=== PATIENT | female | born 1960 | race Caucasian/White ===

== ENCOUNTER → 2017-04-05 | Outpatient (REF) | payer OTHER ==
[2017-04-05 12:37] LABS: BASO # 0.2 K/mm3 (0.0-0.2); BASO % 2.1 % (0.0-1.0); EOS # 0.1 K/mm3 (0.0-0.50); EOS % 1.9 % (0.0-3.0); LARGE UNSTAINED CELL # 0.2 K/mm3 (0.0-0.4); LARGE UNSTAINED CELL % 2.2 % (0.0-4.0); LYMPH # 2.2 K/mm3 (1.5-4.5); LYMPH % 27.4 % (24.0-44.0); MEAN CORPUSCULAR HEMOGLOBIN 33.6 pg (27.0-33.0); MEAN CORPUSCULAR HGB CONC 33.7 g/dl (32.0-36.5); MEAN CORPUSCULAR VOLUME 99.8 fl (80.0-96.0); MONO # 0.6 K/mm3 (0.0-0.8); MONO % 7.9 % (0.0-5.0); NEUTROPHILS # 4.4 K/mm3 (1.8-7.7); NEUTROPHILS % 58.4 % (36.0-66.0); PLATELET COUNT, AUTOMATED 212 k/mm3 (150-450); RED CELL DISTRIBUTION WIDTH 13.4 % (11.5-14.5); WHITE BLOOD COUNT 7.5 K/mm3 (4.0-10.0)
[2017-04-05 13:05] LABS: ERYTHROCYTE SEDIMENTATION RATE 10 mm/hr (0-30)
[2017-04-05 13:21] LABS: URIC ACID 2.8 MG/DL (2.6-6.0)
[2017-04-07 18:14] LABS: Lyme Disease IgG/IgM Antibodie <0.91 ISR (0.00-0.90); Lyme Disease IgM Ab Quantitati <0.80 index (0.00-0.79)
== END ==
LOC: M LABDRAW1 11:43
PROVIDERS: ATTEND Physician Assistant Surgical
DX: M19.011 Primary osteoarthritis, right shoulder (principal)

== ENCOUNTER → 2017-04-23 | Outpatient (RCR) | payer OTHER | LOC: M PT 04-18 16:47 | PROVIDERS: ATTEND Physician Assistant Surgical | DX: Z51.89 Encounter for other specified aftercare (principal); M75.01 Adhesive capsulitis of right shoulder; M75.02 Adhesive capsulitis of left shoulder ==

== ENCOUNTER 2017-05-23 16:45 | Outpatient (RCR) | payer OTHER | END 2017-05-24 | LOC: M PT 16:45 | PROVIDERS: ATTEND Physician Assistant Surgical | DX: Z51.89 Encounter for other specified aftercare (principal); M75.01 Adhesive capsulitis of right shoulder; M75.02 Adhesive capsulitis of left shoulder ==

== ENCOUNTER 2017-06-19 15:15 | Outpatient (RCR) | payer OTHER | END 2017-06-23 | LOC: M PT 15:15 | PROVIDERS: ATTEND Physician Assistant Surgical | DX: Z51.89 Encounter for other specified aftercare (principal); M19.011 Primary osteoarthritis, right shoulder; M19.012 Primary osteoarthritis, left shoulder; M75.02 Adhesive capsulitis of left shoulder ==

== ENCOUNTER 2017-07-03 15:21 | Outpatient (RCR) | payer OTHER | END 2017-07-24 | LOC: M PT 15:21 | PROVIDERS: ATTEND Physician Assistant Surgical | DX: Z51.89 Encounter for other specified aftercare (principal); M19.011 Primary osteoarthritis, right shoulder; M19.012 Primary osteoarthritis, left shoulder; M75.02 Adhesive capsulitis of left shoulder; M75.01 Adhesive capsulitis of right shoulder; M75.21 Bicipital tendinitis, right shoulder; M75.22 Bicipital tendinitis, left shoulder; M75.41 Impingement syndrome of right shoulder; M75.42 Impingement syndrome of left shoulder; M75.112 Incomplete rotator cuff tear or rupture of left shoulder, not specified as traumatic ==

== ENCOUNTER → 2018-11-29 | Outpatient (CLI) | payer OTHER ==
[~2018-11-29] MED LIST: BENZ200C70 PO; FLUTISP; LOSA100T50 PO; METR0.7533 TOP; NICO14DI3 TOP; NICO21DI6 TOP; PROHANCE 279.3MG/ML 15ML VIAL (A9576) As Ordered ONE; QVAR80AE8 IN; SYNT25TA PO; ZYRTTAB8 PO
--- NOTE | 2018-11-29 15:17 | REP ---
MRI brain without and with IV contrast: History: Status post craniotomy with occipital metastasis. Surgery June of 2018 in [facility]. Restage lung cancer. No comparison imaging. The gadolinium enhancement dose is 15 mL of intravenous ProHance. MRI findings: There is occipital craniotomy defect in the posterior midline. No cerebellar mass lesion is visible. There is a small focus of encephalomalacia in the region of the vermis of the cerebellum. There is a tiny karina hole like defect in the right frontal bone at the frontal vertex. This may have been for intracranial pressure monitoring. It does not appear to have been a ventriculostomy site. There is no evidence of subdural or epidural fluid collection. No mass or infarct is seen. Diffusion weighted scans show no evidence to suggest acute ischemia. Postcontrast images show a small quantity of postoperative granulation in the suboccipital region at the craniotomy site. No other abnormal gadolinium enhancement is appreciated. Incidental note is made of bilateral mastoid sinus fluid consistent with some degree of inflammatory mastoid sinus disease. Impression: Status post midline occipital craniotomy. No intracranial mass lesion or abnormal intracranial contrast enhancement is seen. There is some midline encephalomalacia in the vermis of the cerebellum. Consistent with postoperative change. Electronically Signed by Corona Irene MD 11/29/2018 06:49 P
== END ==
LOC: M RAD 12:51
PROVIDERS: ATTEND Internal Medicine Hematology & Oncology
DX: G93.89 Other specified disorders of brain (principal); Z98.890 Other specified postprocedural states; C34.90 Malignant neoplasm of unspecified part of unspecified bronchus or lung; C79.31 Secondary malignant neoplasm of brain
CPT/HCPCS: 70553; A9576

== ENCOUNTER → 2018-12-10 | Outpatient (CLI) | payer OTHER ==
[~2018-12-10] MED LIST changes: -PROHANCE 279.3MG/ML 15ML VIAL (A9576) As Ordered ONE
--- NOTE | 2018-12-18 09:43 | REP ---
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 Brain metastasis. Status post resection of a cerebellar metastasis and whole brain radiation therapy. Right hilar mass. Please obtain prior PET/CT, brain MRI, and chest imaging. Comparisons: Comparison PET/CT study is retrieved from an outside facility dated August 21, 2018. Reporting was delayed pending retrieval of this study. Comparison brain MRI study November 29, 2018. TECHNIQUE: 58 minutes following the intravenous injection of a 9.58 mCi dose of F-18 FDG, three-dimensional PET scintigraphy is acquired from the skull base to the proximal thighs. Triplanar noncontrast CT scanning is acquired through the same anatomic range for attenuation correction, and image registration with scan parameters optimized to minimize radiation exposure to the patient. PET scintigraphy and CT datasets were fused and displayed on a workstation with multiplanar and projection display capability. PET/CT Findings: The previously noted right superior hilar hypermetabolic focus is again seen. It remains hypermetabolic. Maximum standard uptake value is 12.75. Previously this was reported at maximum standard uptake value of 18. This focus remains difficult to measure dimensions with lack of IV contrast but is approximately 2.5 cm. There is no mediastinal hypermetabolic focus visible today. No other abnormal hypermetabolic uptake is seen in the chest. There is a noncalcified nodule in the right upper lobe posterolaterally. This is not hypermetabolic. Maximum standard uptake value is 1.07. This nodular density is somewhat smaller than on the August 21, 2018 CT images. The infiltrate seen at that time in the right upper lobe anteriorly has resolved. In the abdomen and pelvis, there is normal hepatic, splenic, gastrointestinal, and genitourinary F-18 FDG distribution. No hypermetabolic abnormality is seen in the abdomen or pelvis. The patient is status post occipital craniotomy. No abnormal hypermetabolic uptake is seen within the visualized brain. Impression: Hypermetabolic uptake persists in the right superior hilus. Decreased SUV value. There is a nonhypermetabolic nodule in the right upper lobe of the lung which is a little smaller. Electronically Signed by Corona Irene MD 12/18/2018 03:51 P
== END ==
LOC: M PLARAD 10:23
PROVIDERS: ATTEND Internal Medicine Hematology & Oncology
DX: C34.11 Malignant neoplasm of upper lobe, right bronchus or lung (principal)
CPT/HCPCS: 78815; A9552

== ENCOUNTER → 2019-02-03 | Outpatient (CLI) | payer OTHER ==
[~2019-02-03] MED LIST changes: +ALBU83IN INH; +CEFT1INJ4 IV; +MAGICMW SSP; +METR0.753 TOP; +MSIR30TA PO; -QVAR80AE8 IN; +QVAR80AE8 INH; +SENN-52 PO
--- NOTE | 2019-02-03 07:32 | PFTRPT ---
Height: 63.00 Inches Weight: 163.00 Lbs BSA: 1.77 Diagnosis: Lung CA DATE OF PROCEDURE: 02/03/2019 ORDERED BY: Dr. Reis Spirometry: Pre and post bronchodilator study of excellent technical quality. Forced vital capacity reduced. FEV1 in proportion. Obstructive index is, therefore, normal. Flow Volume Loop: Expiratory limb of the flow volume loop does suggest flow rate limitation. There is no bronchodilator response identified. Lung Volumes: Total lung capacity is normal. Residual volume consistent with air trapping. Diffusing Capacity: Diffusing capacity is reduced and does not completely correct for alveolar volume. Hemoglobin: No hemoglobin available for correction. Airway Mechanics: Airway resistance and conductance are normal. IMPRESSION: Suspect some level of obstruction with air trapping. Mild diffusing capacity impairment. Please correlate clinically. MTDD
== END ==
LOC: M CARPUL 06:50
PROVIDERS: ATTEND Radiology Radiation Oncology
DX: C79.31 Secondary malignant neoplasm of brain (principal)

== ENCOUNTER 2019-02-07 04:00 | Inpatient (IN) | payer OTHER ==
[~2019-02-07] VITALS: Ht 160 cm; Wt 74.6 kg
[~2019-02-07 04:00] MED LIST changes: -ALBU83IN INH; -CEFT1INJ4 IV; -METR0.753 TOP; -MSIR30TA PO; -SENN-52 PO
[2019-02-07 08:05] VITALS: BP 122/69
[2019-02-07] MEDS ORDERED: ACETAMINOPH W/CODEINE #3 TAB UD PO PRN ×2 (09:00)
[2019-02-07] MEDS: FLUTICASONE PROP 0.05% NASAL SPRAY 16 GM (FLONASE) SCH ×2 (09:00→20:51)
[2019-02-07] MEDS ORDERED: MORPHINE 4 MG/ML 1ML VIAL/SYRINGE (J2270) IV PRN (09:00)
[2019-02-07 09:22] LABS: HEMATOCRIT 37.3 % (36.0-47.0); HEMOGLOBIN 11.9 g/dl (12.0-15.5); MEAN CORPUSCULAR HEMOGLOBIN 30.7 pg (27.0-33.0); MEAN CORPUSCULAR HGB CONC 31.9 g/dl (32.0-36.5); MEAN CORPUSCULAR VOLUME 96.4 fl (80.0-96.0); PLATELET COUNT, AUTOMATED 410 10^3/uL (150-450); RED BLOOD COUNT 3.87 10^6/uL (4.00-5.40); WHITE BLOOD COUNT 10.5 10^3/uL (4.0-10.0)
[2019-02-07] MEDS ORDERED: ALBU83IN INH (09:39)
[2019-02-07] MEDS ORDERED: BENZ200C70 PO (09:39)
[2019-02-07] MEDS ORDERED: CEFT1INJ4 IV (09:39)
[2019-02-07 09:40] LABS: ALT/SGPT 18 U/L (12-78); BILIRUBIN,TOTAL 0.2 MG/DL (0.2-1.0); BLOOD UREA NITROGEN 5 MG/DL (7-18); CALCIUM LEVEL 8.6 MG/DL (8.5-10.1); CARBON DIOXIDE LEVEL 28 MEQ/L (21-32); CHLORIDE LEVEL 103 MEQ/L (98-107); CREATININE FOR GFR 0.66 MG/DL (0.55-1.30); GLOMERULAR FILTRATION RATE > 60.0 (>51); GLUCOSE, FASTING 109 MG/DL (70-100); POTASSIUM SERUM 4.6 MEQ/L (3.5-5.1); SODIUM LEVEL 138 MEQ/L (136-145); TOTAL PROTEIN 6.9 GM/DL (6.4-8.2)
[2019-02-07] MEDS ORDERED: cefTRIAXone SOD 1 GM in D5W MINI-BAG PLUS 50 ML IV SCH (10:00)
[2019-02-07] MEDS: ENOXAPARIN 40 MG/0.4 ML SYRINGE (J1650) SC SCH (10:14)
[2019-02-07] MEDS: MORPHINE 4 MG/ML 1ML VIAL/SYRINGE (J2270) IV PRN ×3 (10:16→22:24)
[2019-02-07] MEDS ORDERED: BENZONATATE 100 MG CAP PO PRN (11:00)
[2019-02-07] MEDS ORDERED: metroNIDAZOLE 70 GM VAGINAL GEL TOP PRN (11:00)
[2019-02-07] MEDS ORDERED: ALBUTEROL SULFATE 2.5 MG/0.5 ML INH NEB SOLN INH PRN (11:00)
--- NOTE | 2019-02-07 11:08 | HPEPDOC ---
[facility] [place] History & Physical Date of Admission Attending Physician: Melissa History and Physical DATE OF ADMISSION 02/07/2019 PCP Adam CHIEF COMPLAINT: Right scapular pain HISTORY OF PRESENT ILLNESS: Patient is a 54-year-old male female who presents with right scapular pain which is onset within the last 3-4 weeks with progressive worsening she felt it was related to the way she was utilizing her rolling walker and have this adjusted some mild improvement at Dr. Aponte's office of oncology. Since then however it is progressively worsened once again it is in the [facility] area where she has right-sided small cell carcinoma of the lung and where she has been undergoing radiation therapy. It is not improved with Tylenol it is not associated with any specific position but worse with any movement. She denies fevers chills nausea vomiting. She denies any associated cough recent travel or sick contacts. The patient initially presented to [facility] but they did not have a bed and as such she was transferred to our facility as a direct admission PAST MEDICAL HISTORY: 1. 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 2. Gastroesophageal reflux disease. 3. COPD 4. Hypothyroidism. HOME MEDICATIONS: Please see below. ALLERGIES: Please see below PAST SURGICAL HISTORY: 1. Brain resection for metastatic lung cancer. 2. . 3. "hand and arm surgery". SOCIAL HISTORY: Lives with: Alone, Employment: Retired cafe or restaurant manager, Tobacco use: Active smoker. ETOH: Infrequent alcohol use, Illicit drug use: Denies, Tattoos done unprofessionally: Denies. IV drug use: Denies CODE STATUS: DNR/DNI paperwork is with her daughter Marta Flower who is her healthcare proxy and lives in [place] FAMILY HISTORY:Reviewed and noncontributory REVIEW OF SYSTEMS: CONSTITUTIONAL: Denies weight loss, night sweats, fatigue malaise HEENT: Denies visual changes, headache, eye pain, running nose, nosebleeds, rining in the ear, sore throat. CARDIOVASCULAR: Denies chest pain, shortness of breath, PND, orthopnea, edema. RESPIRATORY: Denies cough, sputum, wheeze, hemoptysis. GASTROINTESTINAL: Denies abdominal pain, nausea, vomiting, diarrhea. GENITOURINARY: Denies incontinence, frequency, dysuria. SKIN: Denies pruritus, oswaldo, dryness, open wounds. MUSCULOSKELETAL: Denies muscle ache,s weakness, worsening arthritis, other than HPI. NEUROLOGICAL: Denies seizures, paresthesias, paralysis, gait instability. PSYCHIATRIC: Patient denies difficulty with concentration, anxiety, anhedonia, depression, energy. ENDOCRINE: Patient denies cold or heat intolerance, changes in appetite, hair loss. HEMATOLOGIC/LYMPHATIC: Denies purpura, petechia, easy bleeding. PHYSICAL EXAMINATION: VITAL SIGNS: Temperature 97 7, pulse 82, respiratory rate 18, blood pressure 122/69, pulse oximetry 98 % on room air. GENERAL: Pleasant elderly woman sitting up in bed awake alert oriented speaking in complete sentences no acute distress HEENT: Moist mucous membranes no elevation and CVP, well-healed surgical scar to the right cranium CARDIOVASCULAR: S1 S2 regular no additional heart sounds appreciated. RESPIRATORY: Clear to auscultation bilaterally. No tenderness to palpation over the right scapula ABDOMINAL: Bowel sounds present abdomen soft and nontender, obese EXTREMITIES: No clubbing cyanosis or edema NEUROLOGICAL: Spontaneously moves all 4 extremities cranial 2 through 12 grossly intact no gross focal deficits appreciated PSYCHOLOGICAL: Appropriate LABORATORY DATA: See below. MICROBIOLOGY: Please see below. IMAGING: Report from [facility] regarding CTA suggestive of right lung mass possible infiltrate associated with it ASSESSMENT & PLAN: 58-year-old female with small cell lung carcinoma presenting with right-sided scapular pain. PROBLEMS: 1. Right-sided scapular pain: Highly suspicious for infiltrative metastatic disease and we'll check a chest x-ray, she is concern for musculoskeletal pain related to using her walker. I've contacted physical therapy and occupational therapy to have her evaluated. I'll provide her with codeine for pain control as she has allergies to hydrocodone and oxycodone. These medications causing her to get hives and vomiting. Also provided with IV morphine for breakthrough as needed I did discuss at length palliative care consultation which she is agreeab le to have entered this order. My suspicion for pneumonia is quite low she was started on ceftriaxone at [facility] I'll continue doxycycline and ceftriaxone and follow-up her cultures and pro-calcitonin level with a low threshold to discontinue antibiotics 2.Stage IV metastatic small cell carcinoma: She'll require further outpatient oncology follow-up she is a DNR/DNI which I feel is appropriate. Her prognosis is certainly poor given this diagnosis seen with vest therapies. Her disease has remained stable as far she knows. My goal will be to optimize her pain relief and have follow-up oncology outpatient 3.Hypothyroidism: Continue with Synthroid 4. Hypertension: Continue with losartan DVT PROPHYLAXIS: Lovenox DISPOSITION: And admitted to the medical surgical floor PROGNOSIS: Long-term is quite poor Vital Signs Vital Signs Date Time Temp Pulse Resp B/P (MAP) Pulse Ox O2 Delivery O2 Flow Rate FiO2 02/07/19 10:26 18 02/07/19 08:05 97.7 82 122/69 (86) 98 Laboratory Data Labs 24H Laboratory Tests 2 02/07/19 09:05: Nucleated Red Blood Cells % (auto) 0.0, Anion Gap 7L, Glomerular Filtration Rate > 60.0, Lactic Acid Level 1.6, Blood Urea Nitrogen 5L, Creatinine 0.66, Sodium Level 138, Potassium Level 4.6, Chloride Level 103, Carbon Dioxide Level 28, Calcium Level 8.6, Aspartate Amino Transf (AST/SGOT) 14, Alanine Aminotransferase (ALT/SGPT) 18, Alkaline Phosphatase 127H, Total Bilirubin 0.2, Total Protein 6.9, Albumin 3.0L, Albumin/Globulin Ratio 0.77L CBC/BMP Laboratory Tests 02/07/19 09:05 Red Blood Count 3.87 L, Mean Corpuscular Volume 96.4 H, Mean Corpuscular Hemoglobin 30.7, Mean Corpuscular Hemoglobin Concent 31.9 L, Red Cell Dis tribution Width 15.6 H, Calcium Level 8.6, Aspartate Amino Transf (AST/SGOT) 14, Alanine Aminotransferase (ALT/SGPT) 18, Alkaline Phosphatase 127 H, Total Bilirubin 0.2, Total Protein 6.9, Albumin 3.0 L Microbiology Microbiology 02/07/19 Blood Culture, Received Pending 02/07/19 Blood Culture, Received Pending Home Medications Scheduled Beclomethasone Dipropionate (Qvar Redihaler) 80 Mcg/Act Aer, 80 MCG INH BID Ceftriaxone in Is-Osm Dextrose (Ceftriaxone 1 gm-D5w Bag) 1 Gm/50 Ml Piggyback, 1 INJ IV ASDIRECTED STARTED AT [facility] Fluticasone Propionate (Fluticasone Propionate) 50 Mcg/Act Spr, 1 SPRAY NA BID Levothyroxine Sodium (Synthroid) 25 Mcg Tab, 25 MCG PO DAILY Losartan Potassium (Losartan Potassium) 100 Mg Tab, 100 MG PO DAILY Scheduled PRN Albuterol Sulf (Albuterol Sulfate) 2.5 Mg/3 Ml Vial.neb, 2.5 MG INH QID PRN for SHORTNESS OF BREATH Benzonatate (Benzonatate) 200 Mg Capsule, 200 MG PO TID PRN for COUGH Metronidazole (Metronidazole 0.75% Gel) 0.75 % Gel, 1 DOSE TOP BID PRN for ROSACEA Allergies Coded Allergies: hydrocodone (Verified Allergy, Intermediate, HIVES, VOMITING, 02/07/19) PT STATES SHE CAN TOLERATE CODEINE AND MORPHINE oxycodone (Verified Allergy, Intermediate, HIVES, VOMITING, 02/07/19) PT STATES SHE CAN TOLERATE CODEINE AND MORPHINE METALS (Verified Allergy, Unknown, 09/13/18) aspirin (Verified Allergy, Unknown, PT WAS TOLD TO NEVER TAKE AGAIN AFTER BRAIN SURGERY, 02/07/19) erythromycin base (Verified Allergy, Unknown, VOMIT, 02/07/19) A-FIB/CHADSVASC A-FIB History Current/History of A-Fib/PAF?: No FRANKLYN CORREA MD February 07, 2019 11:08
[2019-02-07] MEDS: DOXYCYCLINE HYCLATE 100 MG in D5W MINI-BAG PLUS 100 ML IV SCH ×2 (11:12→23:16)
[2019-02-07] MEDS ORDERED: METR0.753 TOP (11:50)
[2019-02-07] MEDS: LOSARTAN 50 MG TAB PO SCH (11:56)
[2019-02-07] MEDS: LEVOTHYROXINE 25MCG TABLET (0.025MG) PO SCH (11:56)
--- NOTE | 2019-02-07 12:22 | REP ---
Portable chest x-ray: Single view. History: Chest pain. Comparison chest x-ray: December 22, 2014. Comparison is made with PET-CT images from December 10, 2018. Findings: There is a new band of horizontally oriented consolidation in the right upper lobe above the minor fissure consistent with pneumonia and/or atelectasis. This is fairly large. The left lung remains clear. Pleural angles are sharp. Cardiomediastinal silhouette is unremarkable. Impression: Dense band of parenchymal consolidation in the right upper lobe above the minor fissure consistent with pneumonia and/or atelectasis. Electronically Signed by Corona Irene MD 02/07/2019 12:14 P
--- NOTE | 2019-02-07 15:35 | CR.PDOC ---
General Date of Consultation: February 07, 2019 Referring Provider: BOGDAN KEBEDE Consultation REASON FOR CONSULTATION/CHIEF COMPLAINT: 58 year old female with metatstatic stage 4 NSCLCA. She had previous surgery to remove brain tumor, has undergone chemotherapy and is anticipating starting RT on Sunday with Dr. Holliday. She came to [facility] with complaints of acute pain in the right posterior thorax, reported as near scapula. No bed availabel at [place], she was sent to [facility]. She cannot take oxycodone or hydrocodoen, hospitalist has started codiene. HISTORY OF PRESENT ILLNESS: as above. Also she cannot afford "magic mouthwash" ordered by oncologist in anticipation of upcoming RT ALLERGIES: Please see below. HOME MEDICATIONS: Please see below. PAST MEDICAL HISTORY: 1. HTN 2. Hypothyroid 3/ Chronic LBP 4. Stage 4 NSCLCA PAST SURGICAL HISTORY: 1. craniotomy refer to admission H+P FAMILY HISTORY:noncontributory SOCIAL HISTORY: Marital status and/or living arrangements: . lives alone Children: 6 Employment: disabled, worked as restaurant manager Tobacco use:1/2 PPD down from 2 ppd ETOH: rare beer currently, previously 6 beers daily Illicit drug use: denies IV drug use: denies Other relevant social factors: she reports she has MOLST form, DNR/DNI and HCP REVIEW OF SYSTEMS: CONSTITUTIONAL: no fevers, chills, unexplained weight loss, fatigue HEENT:+PND. denies sinus/ear pain or pressure CARDIOVASCULAR: no CP, no palpitations, no LE edema RESPIRATORY: denies whezzing, dyspnea, orthopnea GENITOURINARY: denies dysuria, hematuria MUSCULOSKELETAL: right mid posterior thoacic pain, sharp GASTROINTESTINAL: denies n/v/c/d. No abdominal pain SKIN: denies rashes NEUROLOGICAL: no headaches, tremors, ataxia. Needs walker for ambualtion PSYCHIATRIC: denies SI/HI; no depression ENDOCRINE: denies hair, skin, nail changes. No excessive thrist HEMATOLOGIC/LYMPHATIC: NSCLCA ALLERGIC/IMMUNOLOGIC: hydrocodoen/oxycodone PHYSICAL EXAMINATION: VITAL SIGNS: Please see below. GENERAL APPEARANCE: AAOx3 HEENT: Dentures, mucosa moist RESPIRATORY: Decreased breath sounds bilatearl bases CARDIOVASCULAR: S1 S2 RRR ABDOMEN: [Obese, +BS EXTREMITIES: No C/C/E NEUROLOGICAL: Unsteady gait, no tremor or rigidity PSYCHIATRIC: Euthymic, future oriented LABORATORY DATA: Please see below. ASSESSMENT/PLAN: 1. Pain secnodary to metastatic disease vs musculoskeletal 2. Inability to afford medication 1. I suggest changing oral codiene to morphine 15 mg po q 4 hr prn. She has tolerated this previously and may be less constipating than codiene 2. Will need to discuss how to cover her "magic mouthwash" since she cannot afford $80 for this. Vital Signs/I&O Vital Signs Date Time Temp Pulse Resp B/P (MAP) Pulse Ox O2 Delivery O2 Flow Rate FiO2 02/07/19 14:01 18 02/07/19 11:56 122/69 02/07/19 08:05 97.7 82 98 Laboratory Data Labs 24H Laboratory Tests 2 02/07/19 09:05: Nucleated Red Blood Cells % (auto) 0.0, Anion Gap 7L, Glomerular Filtration Rate > 60.0, Lactic Acid Level 1.6, Blood Urea Nitrogen 5L, Creatinine 0.66, Sodium Level 138, Potassium Level 4.6, Chloride Level 103, Carbon Dioxide Level 28, Calcium Level 8.6, Aspartate Amino Transf (AST/SGOT) 14, Alanine Aminotransferase (ALT/SGPT) 18, Alkaline Phosphatase 127H, Total Bilirubin 0.2, Total Protein 6.9, Albumin 3.0L, Albumin/Globulin Ratio 0.77L, Procalcitonin 0.18 CBC/BMP Laboratory Tests 02/07/19 09:05 Red Blood Count 3.87 L, Mean Corpuscular Volume 96.4 H, Mean Corpuscular Hemoglobin 30.7, Mean Corpuscular Hemoglobin Concent 31.9 L, Red Cell Distribution Width 15.6 H, Calcium Level 8.6, Aspartate Amino Transf (AST/SGOT) 14, Alanine Aminotransferase (ALT/SGPT) 18, Alkaline Phosphatase 127 H, Total Bilirubin 0.2, Total Protein 6.9, Albumin 3.0 L Microbiology Microbiology 02/07/19 Blood Culture, Received Pending 02/07/19 Blood Culture, Received Pending Allergies Coded Allergies: hydrocodone (Verified Allergy, Intermediate, HIVES, VOMITING, 02/07/19) PT STATES SHE CAN TOLERATE CODEINE AND MORPHINE oxycodone (Verified Allergy, Intermediate, HIVES, VOMITING, 02/07/19) PT STATES SHE CAN TOLERATE CODEINE AND MORPHINE METALS (Verified Allergy, Unknown, 09/13/18) aspirin (Verified Allergy, Unknown, PT WAS TOLD TO NEVER TAKE AGAIN AFTER BRAIN SURGERY, 02/07/19) erythromycin base (Verified Allergy, Unknown, VOMIT, 02/07/19) Home Medications Scheduled Beclomethasone Dipropionate (Qvar Redihaler) 80 Mcg/Act Aer, 2 PUFFS INH BID, (Reported) Fluticasone Propionate (Fluticasone Propionate) 50 Mcg/Act Spr, 1 SPRAY NA BID, (Reported) Levothyroxine Sodium (Synthroid) 25 Mcg Tab, 25 MCG PO DAILY, (Reported) Losartan Potassium (Losartan Potassium) 100 Mg Tab, 100 MG PO DAILY, (Reported) Scheduled PRN Albuterol Sulf (Albuterol Sulfate) 2.5 Mg/3 Ml Vial.neb, 2.5 MG INH QID PRN for SHORTNESS OF BREATH, (Reported) Benzonatate (Benzonatate) 200 Mg Capsule, 200 MG PO TID PRN for COUGH, (Reported) Metronidazole (Metronidazole) 59 Ml Lotion, 1 DOSE TOP BID PRN for ROSACEA, (Reported) Morphine Sulfate (Morphine Sulfate) 30 Mg Tablet, 15 MG PO Q4HP PRN for SEVERE PAIN (PS 8-10), #30 Sennosides/Docusate Sodium (Senna Plus Tablet) 1 Each Tablet, 1 TAB PO BIDP PRN for CONSTIPATION, #60 Keesha WINKLER ROOM WORKER February 07, 2019 15:35
--- NOTE | 2019-02-07 18:46 | ECGEPIP ---
Stationary ECG Study [facility] Test Date: 2019-02-07 Pat Name: TATYANA CHANDLER Department: Room: [place] [address] Gender: F Mechanical Inspector: ROYAL : [id number] Requested By: FRANKLYN CORREA Order Number: [id number] Reading MD: Abdi Mckenna Measurements Intervals Roby Rate: 80 P: 70 MT: 151 QRS: 66 QRSD: 90 T: 56 QT: 369 QTc: 427 Interpretive Statements SINUS RHYTHM NO PRIOR Electronically Signed On 02-07-2019 18:46:35 EDT by Abdi Mckenna
[2019-02-07] MEDS ORDERED: ONDANSETRON 4MG/2ML VIAL (J2405) IV ONE (21:00)
[2019-02-07] MEDS ORDERED: CALCIUM CARBONATE 500 MG CHEW U/D PO ONE (21:00)
[2019-02-07] MEDS ORDERED: QVAR INH SCH (21:00)
[2019-02-07 22:00] VITALS: BP 119/58
[2019-02-08] MEDS: LEVOTHYROXINE 25MCG TABLET (0.025MG) PO SCH (05:31)
[2019-02-08] MEDS: MORPHINE 4 MG/ML 1ML VIAL/SYRINGE (J2270) IV PRN (05:32)
[2019-02-08 06:00] VITALS: BP 128/64
[2019-02-08 06:00] LABS: HEMATOCRIT 33.4 % (36.0-47.0); HEMOGLOBIN 10.9 g/dl (12.0-15.5); MEAN CORPUSCULAR HEMOGLOBIN 31.1 pg (27.0-33.0); MEAN CORPUSCULAR HGB CONC 32.6 g/dl (32.0-36.5); MEAN CORPUSCULAR VOLUME 95.2 fl (80.0-96.0); PLATELET COUNT, AUTOMATED 350 10^3/uL (150-450); RED BLOOD COUNT 3.51 10^6/uL (4.00-5.40); WHITE BLOOD COUNT 7.2 10^3/uL (4.0-10.0)
[2019-02-08 06:18] LABS: BLOOD UREA NITROGEN 6 MG/DL (7-18); CALCIUM LEVEL 8.5 MG/DL (8.5-10.1); CARBON DIOXIDE LEVEL 28 MEQ/L (21-32); CHLORIDE LEVEL 102 MEQ/L (98-107); GLOMERULAR FILTRATION RATE > 60.0 (>51); GLUCOSE, FASTING 93 MG/DL (70-100); POTASSIUM SERUM 4.1 MEQ/L (3.5-5.1); SODIUM LEVEL 138 MEQ/L (136-145)
[2019-02-08] MEDS ORDERED: MORPHINE 30 MG TAB **MSIR PO PRN (07:30)
[2019-02-08] MEDS ORDERED: SENOKOT S TAB PO PRN (07:30)
[2019-02-08] MEDS ORDERED: MOM 30ML SUSPENSION UDC PO PRN (07:30)
[2019-02-08] MEDS: ENOXAPARIN 40 MG/0.4 ML SYRINGE (J1650) SC SCH (12:15)
[2019-02-08 12:16] VITALS: BP 130/68
[2019-02-08] MEDS: FLUTICASONE PROP 0.05% NASAL SPRAY 16 GM (FLONASE) SCH (12:16)
[2019-02-08] MEDS: LOSARTAN 50 MG TAB PO SCH (12:16)
[2019-02-08] MEDS ORDERED: MSIR30TA PO ×3 (12:44→13:02)
[2019-02-08] MEDS ORDERED: SENN-52 PO (12:44)
--- NOTE | 2019-02-08 13:21 | DS.PDOC ---
Discharge Summary General Date of Admission February 07, 2019 at 08:02 Date of Discharge 02/08/2019 Discharge Summary DISCHARGE DIAGNOSIS:[Intractable back pain] SECONDARY DIAGNOSIS: 1. 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 2. Gastroesophageal reflux disease. 3. COPD 4. Hypothyroidism. PROCEDURES PERFORMED DURING STAY: [None]. CONSULTANTS:[Palliative care] HOSPITAL COURSE: Patient is a 54-year-old female who presented to [facility] with progressive worsening of right-sided scapular pain for last 3-4 weeks. She has known history of right small cell lung cancer with metastasis to the brain status post craniotomy and surgical resection. She feels though the pain is related to recent use of her walker versus progressively worsening metastatic disease as it isn't same reason location as her cancer. She was seen and evaluated by palliative care who made recommendations regarding her pain management she was also seen by PT and OT who assisted her with utilizing her walker at this time she is much improved. There was initially some concern for possible pneumonia [facility] her pro-calcitonin was not suggestive of this neither were her presentation she had no fevers cough chills and antibiotics were discontinued. DISCHARGE MEDICATIONS: Please see below. ALLERGIES: Please see below. SUBJECTIVE: Patient tells me that she is feeling much better pain is controlled she is appreciated of the palliative care consultation [otherwise patient denies chest pain, shortness, breath, nausea, vomiting, fevers, chills] OBJECTIVE PHYSICAL EXAMINATION: VITAL SIGNS: Please see below. GENERAL: [Pleasant woman appears older than stated age sitting up in bed awake alert oriented speaking in complete sentences no acute distress] HEENT: [Moist mucous membranes no elevation and CVP, well-healed posterior cranial scar] CARDIOVASCULAR: [S1 S2 regular no additional heart sounds appreciated.] RESPIRATORY: [Clear to auscultation bilaterally.] ABDOMINAL: [Bowel sounds present abdomen soft and nontender] EXTREMITIES: [No clubbing, cyanosis, edema] NEUROLOGICAL: [Spontaneously moves all 4 extremities cranial 2 through 12 grossly intact, no gross focal deficits appreciated] PSYCHOLOGICAL: [Appropriate] LABORATORY DATA, MICROBIOLOGY: Please see below. IMAGING STUDIES: [Dense band of parenchymal consolidation in the right upper lobe above the minor fissure consistent with pneumonia and/or atelectasis.] DVT prophylaxis ordered: [Lovenox] ASSESSMENT & PLAN: 58-year-old female with small cell lung carcinoma presenting with right-sided scapular intractable back pain PROBLEMS: 1. Right-sided scapular pain: Highly suspicious for infiltrative metastatic disease versus musculoskeletal pain related to her walker. Palliative care consult greatly appreciated her pain is adequately controlled physical therapy if cleared her to have helped her with instructions on proper use of her walker she appears to be doing significantly better at this time. There is no any evidence of pneumonia and she has no further indication for antibiotics and as such I'll discontinue them. 2.Stage IV metastatic small cell carcinoma: She'll require further outpatient oncology follow-up she is a DNR/DNI which I feel is appropriate. Her prognosis is certainly poor given this diagnosis even with the best therapies. Her disease has remained stable as far she knows. 3.Hypothyroidism: Continue with Synthroid 4. Hypertension: Continue with losartan PROGNOSIS: Long-term is quite poor DISCHARGE CONDITION: [Improved and Stable]. FOLLOW UP: [Follow-up with PCP within 7 days follow-up with oncology within 7 days follow-up with palliative care within 2 weeks] ACTIVITY: [As prior to admission]. DIET: [As prior to admission] TIME SPENT ON DISCHARGE: [45 minutes] Vital Signs/I&Os Vital Signs Date Time Temp Pulse Resp B/P (MAP) Pulse Ox O2 Delivery O2 Flow Rate FiO2 02/08/19 12:16 130/68 02/08/19 09:48 18 02/08/19 06:00 98.5 91 97 I&O- Last 24 Hours up to 6 AM 02/08/19 06:00 Intake Total 1510 ml Balance 1510 ml Laboratory Data Labs 24H Laboratory Tests 2 02/08/19 05:45: Nucleated Red Blood Cells % (auto) 0.0, Anion Gap 8, Glomerular Filtration Rate > 60.0, Blood Urea Nitrogen 6L, Creatinine 0.60, Sodium Level 138, Potassium Level 4.1, Chloride Level 102, Carbon Dioxide Level 28, Calcium Level 8.5 CBC/BMP Laboratory Tests 02/08/19 05:45 Red Blood Count 3.51 L, Mean Corpuscular Volume 95.2, Mean Corpuscular Hemoglobin 31.1, Mean Corpuscular Hemoglobin Concent 32.6, Red Cell Distribution Width 15.7 H, Calcium Level 8.5 Microbiology Microbiology 02/07/19 Blood Culture - Preliminary, Resulted No growth after 24 hours . All specim... 02/07/19 Blood Culture - Preliminary, Resulted No growth after 24 hours . All specim... Discharge Medications Scheduled Beclomethasone Dipropionate (Qvar Redihaler) 80 Mcg/Act Aer, 2 PUFFS INH BID, (Reported) Fluticasone Propionate (Fluticasone Propionate) 50 Mcg/Act Spr, 1 SPRAY NA BID, (Reported) Levothyroxine Sodium (Synthroid) 25 Mcg Tab, 25 MCG PO DAILY, (Reported) Losartan Potassium (Losartan Potassium) 100 Mg Tab, 100 MG PO DAILY, (Reported) Scheduled PRN Albuterol Sulf (Albuterol Sulfate) 2.5 Mg/3 Ml Vial.neb, 2.5 MG INH QID PRN for SHORTNESS OF BREATH, (Reported) Benzonatate (Benzonatate) 200 Mg Capsule, 200 MG PO TID PRN for COUGH, (Reported) Metronidazole (Metronidazole) 59 Ml Lotion, 1 DOSE TOP BID PRN for ROSACEA, (Reported) Morphine Sulfate (Morphine Sulfate) 30 Mg Tablet, 15 MG PO Q4HP PRN for SEVERE PAIN (PS 8-10) Sennosides/Docusate Sodium (Senna Plus Tablet) 1 Each Tablet, 1 TAB PO BIDP PRN for CONSTIPATION Allergies Coded Allergies: hydrocodone (Verified Allergy, Intermediate, HIVES, VOMITING, 02/07/19) PT STATES SHE CAN TOLERATE CODEINE AND MORPHINE oxycodone (Verified Allergy, Intermediate, HIVES, VOMITING, 02/07/19) PT STATES SHE CAN TOLERATE CODEINE AND MORPHINE METALS (Verified Allergy, Unknown, 09/13/18) aspirin (Verified Allergy, Unknown, PT WAS TOLD TO NEVER TAKE AGAIN AFTER BRAIN SURGERY, 02/07/19) erythromycin base (Verified Allergy, Unknown, VOMIT, 02/07/19) FRANKLYN CORREA MD February 08, 2019 13:21
[2019-02-08 14:00] VITALS: BP 126/68
== END 2019-02-08 15:03 | disposition home or self-care (01) | DRG 41 ==
LOC: M MSPAV 08:02 → UNDOADMIN 08:02 → UNDODISIN 02-08 15:03
PROVIDERS: ADMIT Internal Medicine; ATTEND Internal Medicine
DX: C79.31 Secondary malignant neoplasm of brain (principal); I10 Essential (primary) hypertension; C34.91 Malignant neoplasm of unspecified part of right bronchus or lung; G89.3 Neoplasm related pain (acute) (chronic); J44.9 Chronic obstructive pulmonary disease, unspecified; E03.9 Hypothyroidism, unspecified; K21.9 Gastro-esophageal reflux disease without esophagitis; Z66 Do not resuscitate; Z79.899 Other long term (current) drug therapy; Z88.5 Allergy status to narcotic agent; F17.200 Nicotine dependence, unspecified, uncomplicated; Z88.6 Allergy status to analgesic agent

== ENCOUNTER → 2019-02-21 | Outpatient (RCR) | payer OTHER ==
--- NOTE | 2019-01-27 13:36 | RADONC ---
RADIATION ONCOLOGY SIMULATION NOTE DATE: 01/27/2019 CHART NUMBER: [id number] Ms. Villalobos was taken to the CT scan for CT simulation of her lung field. CT was accomplished without difficulty or discomfort. Radiation treatment planning is underway and radiation treatments will begin subsequently. An immobilization device was created without difficulty or discomfort. It will be used throughout the course of treatment. I was physically present throughout the course CT simulation.
[2019-01-27 14:06] LABS: HEMATOCRIT 36.3 % (36.0-47.0); MEAN CORPUSCULAR HEMOGLOBIN 32.3 pg (27.0-33.0); MEAN CORPUSCULAR HGB CONC 33.1 g/dl (32.0-36.5); MEAN CORPUSCULAR VOLUME 97.7 fl (80.0-96.0); NEUTROPHILS # 8.7 10^3/uL (1.8-7.7); NEUTROPHILS % 76.9 % (36.0-66.0); RED BLOOD COUNT 3.72 10^6/uL (4.00-5.40); WHITE BLOOD COUNT 11.3 10^3/uL (4.0-10.0)
--- NOTE | 2019-02-10 21:04 | RADONC ---
RADIATION ONCOLOGY PROGRESS NOTE DATE: 02/10/2019 CHART NUMBER: [id number] Ms. Villalobos underwent her first fraction of radiation for a dose of 200 cGy to her right hilar region. The patient tolerated her treatments quite well. The patient's review of systems is noncontributory. She denies nausea, vomiting, fevers, chills, night sweats, diplopia, headaches, anxiety or depression, anorexia, weight loss, visual disturbances, chest pain, urinary or bowel difficulties, bone pain, or neurological problems. PHYSICAL EXAMINATION: Clearly the patient's physical exam showed no evidence of radiation change on the skin. In addition, the remainder of her physical exam remained unchanged as well. Ms. Villalobos tolerated her first fraction and radiation will continue as scheduled.
--- NOTE | 2019-02-12 11:27 | MEDONC ---
HEMATOLOGY/ONCOLOGY PROGRESS NOTE DATE OF SERVICE: 02/11/2019 The patient is here for evaluation of extensive stage small cell lung carcinoma. She is status post three cycles of topotecan and was being seen by radiation oncology for sandwich therapy for persistent disease in the chest. Despite the topotecan therapy, the patient still had continued in ongoing residual disease. She has maintained a performance status of about 1/4 on the ECOG scale in the interval. Her last imaging studies that were done performed on 12/10/2018. The patient continued to show hypermetabolic uptake in the right superior hilus. There was a nonhypermetabolic nodule in the right upper lobe of the lung, which did appear smaller. The patient still remains without any problems with any seizure disorder. The patient's last chemotherapy was given on 11/15/2018. She remains on Lovenox for DVT prophylaxis. She has had no signs of any bleeding. Her past medical, surgical, and family history have remained unchanged since her office visit of 09/13/2018. REVIEW OF SYSTEMS: 1. Constitutional: She has had stabilized weight. She still has some tiredness and fatigue. No visual disturbances were noted, and the patient needs a rest jail through the day. 2. Eyes: No blurring of vision. No visual loss, partial or complete. No tearing, redness. 3. Ear, Nose, Throat, and Mouth: No hearing loss, sinusitis, sore throat, dental problems, tooth pain. Denies dysphagia, mouth sores, bleeding. 4. Respiratory: Denies asthma, wheezing, cough, sputum production. 5. GI: No nausea, vomiting, diarrhea, or constipation, change in color or caliber of stool. No hemorrhoids. No rectal bleeding. No hematemesis, heartburn. 6. : No hematuria, dysuria, frequency, stones. 7. CV: No chest pain, palpitations, murmur, fainting, lightheadedness, or chest pressure. 8. Endocrine: No cold or heat intolerance, diabetes, polyuria, polydipsia. 9. Musculoskeletal: No new joint stiffness, joint swelling, myalgias, gout. 10. Allergy/Immunology: No new allergies to food, medications. 11. Hematological: Denies bruising, bleeding, lymph node enlargement. 12. Psychiatric: Denies depression, agitation, memory loss, panic attacks. 13. Skin: Denies rashes, moles, dryness, pigment changes. 14. Neurologic: She still continues with occasional vertigo and dizziness. She has not had any falls. She has had an improvement but states that she still needs to use a walker for long distances to make sure that she has no falls. PHYSICAL EXAMINATION: Vital signs are temperature 96.8, pulse is 98, respiratory rate is 18, BP is 110/60, pulse oximetry is 100. Constitutional: ECOG status 1/4 HEENT: NC. AT, PERRL, EOMI, sclerae white, anicteric, nares intact, oropharynx clear. No thrush. No buccal lesions. Tongue without lesions. Facial area without abnormalities. Neck: Trachea midline. No thyromegaly. No masses. Chest: Normal AP diameter. No truncal lesions noted. No rales, rhonchi, or wheezes noted. Clear to auscultation and percussion. CV: S1 and S2 appreciated. No murmurs, gallops, or rubs. Rhythm RR. Abdomen: Soft, nontender. No HSM. No ascites. No guarding or rebound. : No CVA tenderness. Normal external genitalia. Normal secondary sexual characteristics Extremities: Upper extremities: No edema, swelling, abnormalities. Lower extremities: Show no cyanosis, clubbing, or edema. No varicosities. Good capillary filling noted on right and left lower extremity. Neurological: Cranial nerves II-XII intact. No focal deficits. Motor and sensory intact. No tremor. Vascular: Pulses equal and present in upper extremities and lower extremities. Good capillary filling in lower extremities. No carotid bruits. No abdominal bruits. Skin: No lesions, rashes noted. Psych: No agitation. Normal behavior. Musculoskeletal: The patient is able to stand, transfer. and walk. However, still needs to use a walker for ambulation, which is somewhat steady and intermittently hesitant. On her labs are currently pending. Plan is to complete the radiation therapy in the sandwich, then reassess the patient for possible third-line chemo. The patient has not responded well to the topotecan and concerned that an additional three cycles would not necessarily be particularly helpful, although may sustain a stable disease state. This will depend on her performance status, as well as her tolerance for RT. Electronically Signed by Annamaria Aponte MD 02/12/2019 12:24 P DD: Annamaria Aponte MD 02/11/2019 06:00 P DT: ton 02/12/2019 11:03 A CC:
--- NOTE | 2019-02-18 15:25 | RADONC ---
RADIATION ONCOLOGY PROGRESS NOTE DATE: 02/18/2019 Ms. Villalobos is presently a dose of 1200 cGy to her right hilum and is tolerating treatments quite well at this point with no complaints related to her radiation therapy. She is having no increased difficulty breathing or trouble swallowing. REVIEW OF SYSTEMS: The patient's review of systems is noncontributory. Denies nausea, vomiting, fevers, chills, night sweats, diplopia, headaches, anxiety or depression, anorexia, weight loss, visual disturbances, chest pain, urinary or bowel difficulties, bone pain, or neurological problems. PHYSICAL EXAMINATION: The patient's skin is in good condition with no evidence of radiation change present. There is no moist dry desquamation. The remainder of physical exam remains unchanged. Ms. Villalobos is tolerating treatments quite well, and radiation will continue as scheduled.
[~2019-02-21] MED LIST changes: +ALBU83IN INH; +CEFT1INJ4 IV; +METR0.753 TOP; +MSIR30TA PO; +SENN-52 PO
== END ==
LOC: M ONCR 01-27 12:54
PROVIDERS: ATTEND Radiology Radiation Oncology
DX: C34.90 Malignant neoplasm of unspecified part of unspecified bronchus or lung (principal)